=== PATIENT | male | born 1985 | race Two or more races ===

== ENCOUNTER 2017-07-24 00:20 | Emergency (ER) | payer SELFPAY ==
[~2017-07-24] VITALS: Ht 162.6 cm; Wt 77.1 kg
[2017-07-24] MEDS ORDERED: TRILEPTAL600 MG PO (00:24)
[2017-07-24 00:35] VITALS: BP 152/84
[2017-07-24 01:01] LABS: BASOPHILS % (AUTO) 0.8 % (0.0-2.0); EOSINOPHILS % (AUTO) 11.2 % (0.0-3.0); LYMPHOCYTES % (AUTO) 34.6 % (20.0-45.0); MEAN CORPUSCULAR HEMOGLOBIN 30.5 PG (27.0-31.0); MEAN CORPUSCULAR HGB CONC 34.2 G/DL (32.0-36.0); MEAN CORPUSCULAR VOLUME 89 FL (80-99); MEAN PLATELET VOLUME 7.2 FL (6.5-10.1); MONOCYTES % (AUTO) 5.5 % (1.0-10.0); PLATELET COUNT 264 K/UL (150-450); RED BLOOD COUNT 5.41 M/UL (4.70-6.10); RED CELL DISTRIBUTION WIDTH 11.2 % (11.6-14.8); WHITE BLOOD COUNT 12.1 K/UL (4.8-10.8)
[2017-07-24 01:09] LABS: ANION GAP 17 mmol/L (5-15); CALCIUM 9.1 MG/DL (8.5-10.1); CARBON DIOXIDE 21 MMOL/L (21-32); CHLORIDE 101 MMOL/L (98-107); CREATININE 1.6 MG/DL (0.55-1.30); POTASSIUM 3.1 MMOL/L (3.5-5.1); SODIUM 139 MMOL/L (136-145)
[2017-07-24 01:14] LABS: ALANINE AMINOTRANSFERASE 31 U/L (12-78); ALBUMIN/GLOBULIN RATIO 1.2 (1.0-2.7); ASPARTATE AMINO TRANSFERASE 23 U/L (15-37); TOTAL PROTEIN 7.8 G/DL (6.4-8.2)
[2017-07-24 01:32] LABS: ACETAMINOPHEN < 2 MCG/ML (10-30); ALCOHOL < 3 mg/dL
--- NOTE | 2017-07-24 02:07 | Emergency Room Report ---
History of Present Illness General Chief Complaint: Behavioral Complaint Source: Family Member, EMS Present Illness HPI Patient was brought in by paramedics The report was that the patient had been acting bizarre and aggressive with the family Patient himself reports that he thinks he might have had a seizure Family does present in initially the mom reports that he had a tonic-clonic seizure and therefore she called the paramedics after further questioning she reports that recently he has been acting more bizarre and inappropriate For example urinating on the floor Pacing Patient and the family had received bad news from [facility] several days ago And appears to have exacerbated his situation Patient himself reports having convulsions denies any other homicidal or suicidal thoughts Allergies: Coded Allergies: No Known Allergies (Unverified , 07/24/17) Patient History Past Medical History: see triage record Pertinent Family History: none Reviewed Nursing Documentation: PMH: Agreed, PSxH: Agreed Nursing Documentation-PMH Hx Seizures: Yes Review of Systems All Other Systems: negative except mentioned in HPI Physical Exam Vital Signs Date Time Temp Pulse Resp B/P (MAP) Pulse Ox O2 Delivery O2 Flow Rate FiO2 07/24/17 00:20 99.1 114 24 152/84 98 Room Air Sp02 EP Interpretation: reviewed, normal General Appearance: well appearing, no apparent distress Head: normocephalic - Previous surgery on the right parietal region Eyes: bilateral eye PERRL, bilateral eye EOMI ENT: hearing grossly normal, normal pharynx, TMs + canals normal, uvula midline Neck: full range of motion, supple, no meningismus, no bony tend Respiratory: lungs clear, normal breath sounds, no rhonchi, no respiratory distress, no retraction, no accessory muscle use Cardiovascular #1: normal peripheral pulses, regular rate, rhythm, no edema, no gallop, no JVD, no murmur Gastrointestinal: normal bowel sounds, non tender, soft, no mass, no organomegaly, non-distended, no guarding, no hernia, no pulsatile mass, no rebound Genitourinary: no CVA tenderness Musculoskeletal: normal inspection Neurologic: oriented x3, responsive, production control specialist III-XII nml as tested, motor strength/ tone normal, sensory intact Psychiatric: other - Blunted affect, denies any homicidal or suicidal thought Skin: normal color, no rash, warm/dry, palpation normal Lymphatic: normal inspection, no adenopathy Medical Decision Making ER Course Patient has remained seizure-free throughout his stay baseline blood work are appropriate At this time family had some concern regarding the patient's behavior is unclear to psychiatric versus medical Patient will have an evaluation in the morning Otherwise remains medically clear , Labs Test 07/24/17 00:15 07/24/17 00:40 Urine Opiates Screen Negative (NEGATIVE) Urine Barbiturates Screen Negative (NEGATIVE) Phencyclidine (PCP) Screen Negative (NEGATIVE) Urine Amphetamines Screen Negative (NEGATIVE) Urine Benzodiazepines Screen Positive (NEGATIVE) Urine Cocaine Screen Negative (NEGATIVE) Urine Marijuana (THC) Screen Negative (NEGATIVE) White Blood Count 12.1 K/UL (4.8-10.8) Red Blood Count 5.41 M/UL (4.70-6.10) Hemoglobin 16.5 G/DL (14.2-18.0) Hematocrit 48.3 % (42.0-52.0) Mean Corpuscular Volume 89 FL (80-99) Mean Corpuscular Hemoglobin 30.5 PG (27.0-31.0) Mean Corpuscular Hemoglobin Concent 34.2 G/DL (32.0-36.0) Red Cell Distribution Width 11.2 % (11.6-14.8) Platelet Count 264 K/UL (150-450) Mean Platelet Volume 7.2 FL (6.5-10.1) Neutrophils (%) (Auto) 48.0 % (45.0-75.0) Lymphocytes (%) (Auto) 34.6 % (20.0-45.0) Monocytes (%) (Auto) 5.5 % (1.0-10.0) Eosinophils (%) (Auto) 11.2 % (0.0-3.0) Basophils (%) (Auto) 0.8 % (0.0-2.0) Sodium Level 139 MMOL/L (136-145) Potassium Level 3.1 MMOL/L (3.5-5.1) Chloride Level 101 MMOL/L (98-107) Carbon Dioxide Level 21 MMOL/L (21-32) Anion Gap 17 mmol/L (5-15) Blood Urea Nitrogen 20 mg/dL (7-18) Creatinine 1.6 MG/DL (0.55-1.30) Estimat Glomerular Filtration Rate 51.0 mL/min (>60) Glucose Level 110 MG/DL (74-106) Calcium Level 9.1 MG/DL (8.5-10.1) Total Bilirubin 0.3 MG/DL (0.2-1.0) Aspartate Amino Transf (AST/SGOT) 23 U/L (15-37) Alanine Aminotransferase (ALT/SGPT) 31 U/L (12-78) Alkaline Phosphatase 104 U/L (46-116) Total Protein 7.8 G/DL (6.4-8.2) Albumin 4.2 G/DL (3.4-5.0) Globulin 3.6 g/dL Albumin/Globulin Ratio 1.2 (1.0-2.7) Salicylates Level 1.2 ug/mL (2.8-20) Acetaminophen Level < 2 MCG/ML (10-30) Serum Alcohol < 3 mg/dL Last Vital Signs Date Time Temp Pulse Resp B/P (MAP) Pulse Ox O2 Delivery O2 Flow Rate FiO2 07/24/17 00:35 99.1 114 24 152/84 98 Room Air Status: improved Signed Out To: Oncoming physician for final input Referrals: NOT CHOSEN IPA/,REFERRING (PCP) ANGELINA LEON D.O. Jul 24, 2017 02:07
[2017-07-24 02:35] VITALS: BP 106/61
[2017-07-24 04:35] VITALS: BP 111/67
[2017-07-24 06:35] VITALS: BP 113/74
[2017-07-24 09:58] VITALS: BP 116/70
--- NOTE | 2017-07-24 10:34 | Consultation ---
History of Present Illness General Chief Complaint: Behavioral Complaint Present Illness HPI 31 yo male with hx of seizure disorder who was brought in for bizarre behavior, urinating on the carpet. the father was at bed side and stated that the pt received "bad news his sister is not taking care of her children". the father also stated the pt usually has bizarre behavior after having a seizure. the father also stated that he still having epilepsy eaventrough he takes his meds. the last seizure was 9 months ago/ the pt is not endorsing any psychotic/manic/ depressive sxs/ the pt has anxiety however it is mild. Allergies: Coded Allergies: No Known Allergies (Unverified , 07/24/17) Medication History Scheduled Oxcarbazepine* (Trileptal*), 600 MG PO DAILY, (Reported) Patient History History Provided By: Patient, Family Member, Medical Record Healthcare decision maker Resuscitation status Advanced Directive on File Review of Systems Psychiatric: Reports: prior hx, anxiety Physical Exam General Appearance: no apparent distress, alert Neurologic: alert, oriented x 3, responsive, normal mood/affect Last 24 Hour Vital Signs Date Time Temp Pulse Resp B/P (MAP) Pulse Ox O2 Delivery O2 Flow Rate FiO2 07/24/17 09:58 67 16 116/70 98 Room Air 07/24/17 06:35 98.8 65 14 113/74 99 Room Air 07/24/17 04:35 83 16 111/67 97 Room Air 07/24/17 02:35 99.1 79 18 106/61 99 Room Air 07/24/17 00:35 99.1 114 24 152/84 98 Room Air 07/24/17 00:20 99.1 114 24 152/84 98 Room Air Laboratory Tests Test 07/24/17 00:15 07/24/17 00:40 Urine Opiates Screen Negative (NEGATIVE) Urine Barbiturates Screen Negative (NEGATIVE) Phencyclidine (PCP) Screen Negative (NEGATIVE) Urine Amphetamines Screen Negative (NEGATIVE) Urine Benzodiazepines Screen Positive (NEGATIVE) H Urine Cocaine Screen Negative (NEGATIVE) Urine Marijuana (THC) Screen Negative (NEGATIVE) White Blood Count 12.1 K/UL (4.8-10.8) H Red Blood Count 5.41 M/UL (4.70-6.10) Hemoglobin 16.5 G/DL (14.2-18.0) Hematocrit 48.3 % (42.0-52.0) Mean Corpuscular Volume 89 FL (80-99) Mean Corpuscular Hemoglobin 30.5 PG (27.0-31.0) Mean Corpuscular Hemoglobin Concent 34.2 G/DL (32.0-36.0) Red Cell Distribution Width 11.2 % (11.6-14.8) L Platelet Count 264 K/UL (150-450) Mean Platelet Volume 7.2 FL (6.5-10.1) Neutrophils (%) (Auto) 48.0 % (45.0-75.0) Lymphocytes (%) (Auto) 34.6 % (20.0-45.0) Monocytes (%) (Auto) 5.5 % (1.0-10.0) Eosinophils (%) (Auto) 11.2 % (0.0-3.0) H Basophils (%) (Auto) 0.8 % (0.0-2.0) Sodium Level 139 MMOL/L (136-145) Potassium Level 3.1 MMOL/L (3.5-5.1) L Chloride Level 101 MMOL/L (98-107) Carbon Dioxide Level 21 MMOL/L (21-32) Anion Gap 17 mmol/L (5-15) H Blood Urea Nitrogen 20 mg/dL (7-18) H Creatinine 1.6 MG/DL (0.55-1.30) H Estimat Glomerular Filtration Rate 51.0 mL/min (>60) Glucose Level 110 MG/DL (74-106) H Calcium Level 9.1 MG/DL (8.5-10.1) Total Bilirubin 0.3 MG/DL (0.2-1.0) Aspartate Amino Transf (AST/SGOT) 23 U/L (15-37) Alanine Aminotransferase (ALT/SGPT) 31 U/L (12-78) Alkaline Phosphatase 104 U/L (46-116) Total Protein 7.8 G/DL (6.4-8.2) Albumin 4.2 G/DL (3.4-5.0) Globulin 3.6 g/dL Albumin/Globulin Ratio 1.2 (1.0-2.7) Salicylates Level 1.2 ug/mL (2.8-20) L Acetaminophen Level < 2 MCG/ML (10-30) L Serum Alcohol < 3 mg/dL Height (Feet): 5 Height (Inches): 4.00 Weight (Pounds): 170 Assessment/Plan Status: stable Assessment/Plan anxiety d/o sizure d/o the pt has seizure meds kepra prozac not a 5150 Anupam Martinez M.D. Jul 24, 2017 10:34
[2017-07-24 10:43] VITALS: BP 116/70
[2017-07-24] MEDS ORDERED: PROZAC20 MG ORAL (10:52)
[2017-07-24] MEDS ORDERED: KEPPRA500 M4 ORAL (10:52)
== END 2017-07-24 10:59 | disposition home or self-care (01) ==
LOC: EDBD 00:20 → EMR 00:40
DX: F41.9 Anxiety disorder, unspecified (principal); F32.9 Major depressive disorder, single episode, unspecified; G40.909 Epilepsy, unspecified, not intractable, without status epilepticus; R45.1 Restlessness and agitation
CPT/HCPCS: 36415; 80053; 80307; 85025; 96360; 99284; G0480; 80329

== ENCOUNTER 2017-12-13 03:02 | Emergency (ER) | payer SELFPAY ==
[~2017-12-13] VITALS: Ht 160 cm; Wt 72.6 kg
[~2017-12-13 03:02] MED LIST: KEPPRA500 M4 ORAL; PROZAC20 MG ORAL; TRILEPTAL600 MG PO
--- NOTE | 2017-12-13 03:08 | Emergency Room Report ---
History of Present Illness General Chief Complaint: Seizure Source: Patient, Family Member, EMS Present Illness HPI This is a 32-year-old male with a history of seizure. He take Keppra 500 mg twice a day. He is usually well controlled with the last seizure was over 2 years ago. No alcohol use. No new issues. He presents with chief complaint of seizure tonight. He had a tonic-clonic seizure activity witnessed by mom. He was foaming at the mouth. No incontinence of bowel or urine. He was postictal afterward. Now is back to baseline. Denies any other complaint. No trauma. He does not drive. Allergies: Coded Allergies: No Known Allergies (Unverified , 07/24/17) Patient History Past Medical History: see triage record, old chart reviewed, seizures Past Surgical History: none Pertinent Family History: none Social History: Denies: smoking Immunizations: other Reviewed Nursing Documentation: PMH: Agreed; PSxH: Agreed Nursing Documentation-PMH Hx Seizures: Yes Review of Systems Eye: Denies: eye pain, blurred vision ENT: Denies: ear pain, nose congestion, throat swelling Respiratory: Denies: cough, shortness of breath Cardiovascular: Denies: chest pain, palpitations Gastrointestinal: Denies: abdominal pain, diarrhea, nausea, vomiting Musculoskeletal: Denies: back pain, joint pain Skin: Denies: rash Neurological: Denies: headache, numbness Endocrine: Denies: increased thirst, increased urine Hematologic/Lymphatic: Denies: easy bruising All Other Systems: negative except mentioned in HPI Physical Exam Sp02 EP Interpretation: reviewed, normal General Appearance: well appearing, no apparent distress, alert Head: normocephalic, atraumatic Eyes: bilateral eye PERRL, bilateral eye EOMI ENT: hearing grossly normal, normal pharynx Neck: full range of motion, supple, no meningismus Respiratory: chest non-tender, lungs clear, normal breath sounds Cardiovascular #1: regular rate, rhythm, no murmur Gastrointestinal: normal bowel sounds, non tender, no mass, no organomegaly, no bruit, non-distended Musculoskeletal: back normal, gait/station normal, normal range of motion Psychiatric: mood/affect normal Skin: warm/dry Medical Decision Making Diagnostic Impression: Primary Impression: Seizure ER Course Patient with a breakthrough seizure. Extra dose of Keppra given here. since he is back to baseline and there is no trauma, I see no need for CT scan or labs.We'll discharge home. No need for DMV report since he said he does not drive. Status: improved Disposition: HOME, SELF-CARE Condition: Stable Patient Instructions: Seizure, Adult Additional Instructions: Follow-up with your doctor in 7 days. Return for any new seizure. SHORTY FRANCISCO M.D. Dec 13, 2017 03:08
[2017-12-13] MEDS ORDERED: levETIRAcetam 500mg/NS100ml 100 ML IVPB ONE (03:15)
[2017-12-13 04:14] VITALS: BP 100/54
== END 2017-12-13 04:15 | disposition home or self-care (01) ==
LOC: EDBD 03:02 → EMR 03:42
DX: G40.909 Epilepsy, unspecified, not intractable, without status epilepticus (principal); Z79.899 Other long term (current) drug therapy
CPT/HCPCS: 96361; 96374; 99284; J1953

== ENCOUNTER 2019-06-05 09:42 | Emergency (ER) | payer SELFPAY ==
[~2019-06-05] VITALS: Ht 160 cm; Wt 77.1 kg
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
[2019-06-05 09:42] VITALS: BP 121/76
[~2019-06-05 09:42] MED LIST changes: +TRILEPTAL300 MG PO; +UNOBMED
--- NOTE | 2019-06-05 09:53 | NUR ---
ED Nurse Note: PT TO CT VIA RICHARD.
--- NOTE | 2019-06-05 10:03 | NUR ---
ED Nurse Note: PT BACK FROM CT VIA RICHARD.
[2019-06-05 10:11] LABS: ANION GAP 11 mmol/L (5-15); BLOOD UREA NITROGEN 14 mg/dL (7-18); CALCIUM 9.1 MG/DL (8.5-10.1); CARBON DIOXIDE 24 MMOL/L (21-32); CHLORIDE 104 MMOL/L (98-107); CREATININE 1.2 MG/DL (0.55-1.30); POTASSIUM 3.5 MMOL/L (3.5-5.1); SODIUM 139 MMOL/L (136-145)
[2019-06-05 10:15] LABS: ALANINE AMINOTRANSFERASE 22 U/L (12-78); ALBUMIN 4.2 G/DL (3.4-5.0); ALBUMIN/GLOBULIN RATIO 1.2 (1.0-2.7); ALKALINE PHOSPHATASE 96 U/L (46-116); ASPARTATE AMINO TRANSFERASE 21 U/L (15-37); BASOPHILS % (AUTO) 0.7 % (0.0-2.0); BILIRUBIN,TOTAL 0.5 MG/DL (0.2-1.0); EOSINOPHILS % (AUTO) 6.3 % (0.0-3.0); HEMATOCRIT 46.9 % (42.0-52.0); LYMPHOCYTES % (AUTO) 23.5 % (20.0-45.0); MEAN CORPUSCULAR VOLUME 86 FL (80-99); MONOCYTES % (AUTO) 5.5 % (1.0-10.0); PLATELET COUNT 219 K/UL (150-450); RED BLOOD COUNT 5.45 M/UL (4.70-6.10); WHITE BLOOD COUNT 6.2 K/UL (4.8-10.8)
--- NOTE | 2019-06-05 10:26 | Diagnostic Imaging Report ---
EXAM: CT Head Without Intravenous Contrast CLINICAL HISTORY: SZ TECHNIQUE: Axial computed tomography images of the head brain without intravenous contrast. CTDI is 73.9 mGy and DLP is 2408.1 mGy-cm. One or more of the following dose reduction techniques were used: automated exposure control, adjustment of the mA and or kV according to patient size, use of iterative reconstruction technique. COMPARISON: None FINDINGS: Brain: No acute infarct or hemorrhage. No extra-axial fluid collection. No mass effect or midline shift. Encephalomalacia in the right temporal lobe. Ventricles and sulci: Normal. No ventriculomegaly or intraventricular hemorrhage. Skull: Right pterional craniotomy. No bony lesion or fracture. Subcutaneous tissues: Normal. Sinuses: Mild mucosal thickening in the ethmoid air cells. Small polyps versus mucous retention cysts in the right maxillary sinus. Mastoid air cells: Normal. Orbits: Grossly unremarkable. IMPRESSION: No acute intracranial abnormality. Encephalomalacia in the right temporal lobe.
[2019-06-05 10:46] VITALS: BP 132/86
--- NOTE | 2019-06-05 10:46 | NUR ---
ER DISCHARGE NOTE: Patient is cleared to be discharged per ERMD, pt is aox4, on room air, with stable vital signs. pt was given dc instructions, pt was able to verbalize understanding, pt id band and iv site removed without complications. pt is able to ambulate with steady gait. pt took all belongings and left with his family member.
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
--- NOTE | 2019-06-07 11:40 | Cardiology Report ---
APPROVED REPORT EKG Measurement Heart [id number] Normal sinus rhythm Normal ECG
== END 2019-06-05 10:46 | disposition home or self-care (01) ==
LOC: EDBD 09:42 → EMR 09:56
DX: S09.90XA Unspecified injury of head, initial encounter (principal); R56.9 Unspecified convulsions; S00.31XA Abrasion of nose, initial encounter; X58.XXXA Exposure to other specified factors, initial encounter; Y92.009 Unspecified place in unspecified non-institutional (private) residence as the place of occurrence of the external cause
CPT/HCPCS: 36415; 70450; 80053; 80307; 85025; 93005; 99284; G0480; 80329